=== PATIENT | male | born 1985 | race Caucasian/White ===

== ENCOUNTER 2021-08-14 16:01 | Emergency (ER) | payer BC, SELFPAY ==
[2021-08-14 16:16] VITALS: BP 139/84; PULSE 99; RESP 16; TEMP 36.1; O2SAT 99
--- NOTE | 2021-08-14 16:17 | ED.EAR ---
HPI - Ear Problem General Chief complaint: Ear Stated complaint: left ear pain Time Seen by Provider: 08/14/21 16:50 Source: patient and RN notes reviewed Mode of arrival: ambulatory Limitations: no limitations History of Present Illness HPI Narrative: 35-year-old male presents with concern for left ear pain. Reports pain started approximately 5 days ago, worsened yesterday. Reports a sharp stabbing pain. Reports watery eyes, denies purulent drainage from the eyes. Denies drainage from the ears. Reports slightly congested left nasal passages without drainage. He denies cough, body aches, chills, fever, sweats, nausea, vomiting, diarrhea. Denies known sick contacts. Denies intervention. MD Complaint: ear pain Location: left ear Related Data Allergies Allergy/AdvReac Type Severity Reaction Status Date / Time No Known Allergies Allergy Verified 08/14/21 16:22 Review of Systems Review of Systems: CONSTITUTIONAL: Denies malaise, chills, sweats, or fever. EYES: Denies visual changes, redness, or discharge. ENT: Reportscongestion, left ear pain. Denies sinus pain, congestion and sore throat. CARDIOVASCULAR: Denies chest pain, palpitations, or edema. RESPIRATORY: Reports cough. Denies dyspnea. GASTROINTESTINAL: Denies abdominal pain, nausea, vomiting, diarrhea SKIN: Denies rash or itching. MUSCULOSKELETAL: Denies myalgia. NEUROLOGIC: Denies headache. All systems reviewed & are unremarkable except as noted in HPI and below PMFSH Comments At time of signature, agree with nursing past medical, surgical, social and family history. There is no relevant family history pertinent to the presenting complaint Exam Narrative: GENERAL: Well-appearing, well-nourished, and in no acute distress. HEAD: Normocephalic EYES: PERRLA, conjunctivae clear ENT: Nares clear, left turbinates edematous and erythematous. Mucous membranes moist. Right TM pearly alfonso with dull light reflex, left TM erythematous and bulging with auditory canal erythema and edema; no tragal tenderness. Oropharynx not erythematous without lesions. Tonsils not enlarged and without exudate, no drooling, no hoarseness, no trismus, uvula midline. NECK: Supple. No lymphadenopathy CHEST: Clear to auscultation, breath sounds equal. No wheezing, rhonchi, rales, or stridor. No respiratory distress, speaks in full sentences. HEART: Regular rate and rhythm. No murmur heard. SKIN: Warm, dry, no rash. NEURO: Alert and oriented x3. PSYCH: Normal mood and affect Course Course Emergency Course: Patient is aware of diagnosis, understands and agrees to treatment plan. Anticipatory guidance given. Patient agrees to follow-up as directed and is aware of reasons to seek care at the emergency department. Portions of this record may have been created with voice recognition software Vital Signs Vital signs: Vital Signs Temperature 97.0 F L 08/14/21 16:16 Pulse Rate 99 08/14/21 16:16 Respiratory Rate 16 08/14/21 16:16 Blood Pressure 139/84 08/14/21 16:16 Pulse Oximetry 99 08/14/21 16:16 Temperature 97.0 F L 08/14/21 16:16 Pulse Rate 99 08/14/21 16:16 Respiratory Rate 16 08/14/21 16:16 Blood Pressure 139/84 08/14/21 16:16 Pulse Oximetry 99 08/14/21 16:16 Reviewed. Medical Decision Making MDM Narrative Medical decision making narrative: Differential diagnosis considered: [place] virus, strep pharyngitis, allergic rhinitis, upper respiratory tract infection, sinusitis, rhinosinusitis, nasopharyngitis. viral pharyngitis, otitis media, otitis externa, pneumonia, bronchitis, viral cough syndrome, viral syndrome, and influenza. Exam findings show no acute concerns or changes; patient is non-toxic appearing and is in no distress. Patient is appropriate for outpatient treatment and follow-up. Vital Signs Vital Signs: Vital Signs Temperature 97.0 F L 08/14/21 16:16 Pulse Rate 99 08/14/21 16:16 Respiratory Rate 16 08/14/21 16:16 Blood Pressure 139/84 11
== END 2021-08-14 17:20 | disposition home or self-care (01) ==
PROVIDERS: Emergency Provider Nurse Practitioner
DX: H60.502 Unspecified acute noninfective otitis externa, left ear (principal); H66.002 Acute suppurative otitis media without spontaneous rupture of ear drum, left ear; Z20.822 Contact with and (suspected) exposure to COVID-19
CPT/HCPCS: 87426; 99213; C9803; G0463